=== PATIENT | female | born 1980 | race Caucasian/White ===

== ENCOUNTER 2017-05-01 23:57 | Emergency (ER) | payer MEDICAID, OTHER ==
[~2017-05-01] VITALS: Ht 165.1 cm; Wt 81.0 kg
[~2017-05-01 23:57] MED LIST: QUET50TA5 PO; SERT50TA PO
[2017-05-02 01:15] LABS: HCG UR LOT HCG7030192
[2017-05-02] MEDS ORDERED: DIAZ2TAB PO (01:15)
[2017-05-02] MEDS ORDERED: LORazepam 1MG TABLET ONE (01:20)
[2017-05-02] MEDS ORDERED: LORazepam 1MG TABLET PO ONE (01:30)
[2017-05-02 01:34] LABS: HCG UR OBC PASS
[2017-05-02] MEDS ORDERED: ONDANSETRON ODT 4 MG ONE (02:20)
[2017-05-02] MEDS ORDERED: AZITHROMYCIN 250 MG TABLET ONE (02:20)
[2017-05-02] MEDS ORDERED: metroNIDAZOLE 500 MG TABLET ONE (02:20)
[2017-05-02] MEDS ORDERED: CEFTRIAXONE 250 MG ONE (02:20)
[2017-05-02] MEDS ORDERED: metroNIDAZOLE 500 MG TABLET PO ONE (02:30)
[2017-05-02] MEDS ORDERED: AZITHROMYCIN 500 MG TABLET PO ONE (02:30)
[2017-05-02] MEDS ORDERED: CEFTRIAXONE 250 MG IM ONE (02:30)
[2017-05-02] MEDS ORDERED: ONDANSETRON ODT 4 MG PO ONE (02:30)
[2017-05-02 03:39] VITALS: BP 114/87
== END 2017-05-02 03:40 | disposition home or self-care (01) ==
LOC: ED 05-02 02:35
DX: A59.9 Trichomoniasis, unspecified (principal); R30.0 Dysuria
CPT/HCPCS: 81001; 81025; 87086; 87147; 87210; 87491; 87591; 87808; 96372; 99284; J0696; Q0162

== ENCOUNTER 2017-07-02 21:38 | Observation (INO) | payer OTHER ==
[~2017-07-02] VITALS: Ht 165.1 cm; Wt 76.2 kg
[~2017-07-02 21:38] MED LIST changes: +DIAZ2TAB PO
[2017-07-02] MEDS ORDERED: ONDANSETRON ODT 4 MG PO ONE (22:30)
[2017-07-02 22:51] LABS: BASOPHILS # (AUTO) 0.04 x10^3/uL (0-0.1); BASOPHILS % (AUTO) 1 % (0-1); EOSINOPHILS # (AUTO) 0.04 x10^3/uL (0-0.4); EOSINOPHILS % (AUTO) 1 % (1-7); LYMPHOCYTES # (AUTO) 2.21 x10^3/uL (1-3.4); LYMPHOCYTES % (AUTO) 29 % (22-44); MD NO; MEAN CORPUSCULAR HEMOGLOBIN 31.2 pg (27.0-34.8); MEAN CORPUSCULAR HGB CONC 33.5 g/dL (32.4-35.8); MEAN CORPUSCULAR VOLUME 93.3 fL (80-100); MEAN PLATELET VOLUME 8.5 fL (7.4-10.4); MONOCYTES # (AUTO) 0.53 x10^3/uL (0.2-0.8); MONOCYTES % (AUTO) 7 % (2-9); NEUTROPHILS % (AUTO) 63 % (42-75); PLATELET COUNT 322 x10^3/uL (130-400); RED BLOOD COUNT 4.69 x10^6/uL (3.82-5.3); RED CELL DISTRIBUTION WIDTH 12.6 % (9.6-15.2)
[2017-07-02 22:54] LABS: ALANINE AMINOTRANSFERASE 17 U/L (12-78); ALBUMIN 3.5 g/dL (3.4-5.0); ANION GAP 7 mmol/L (5-15); CALCIUM 8.4 mg/dL (8.5-10.1); CHLORIDE 107 mmol/L (98-107); SALICYLATE LEVEL 5.5 mg/dL (2.8-20.0)
[2017-07-02 22:57] LABS: ALKALINE PHOSPHATASE 74 U/L (45-117); BILIRUBIN,TOTAL 0.6 mg/dL (0.2-1.0); CREATININE 0.76 mg/dL (0.55-1.02); TOTAL PROTEIN 6.5 g/dL (6.4-8.2)
[2017-07-02 22:58] LABS: ACETAMINOPHEN < 2 mcg/mL (10-30)
[2017-07-02] MEDS ORDERED: ONDANSETRON ODT 4 MG ONE (23:00)
[2017-07-03 04:53] LABS: MICROSCOPIC INDICATED
[2017-07-03 05:02] LABS: CULTURE INDICATED? YES
[2017-07-03 05:50] LABS: AMPHETAMINE SCREEN, URINE Negative (Negative); BARBITURATE SCREEN, URINE Negative (Negative); BENZODIAZEPINE SCREEN, URINE Negative (Negative); CANNABINOID SCREEN, URINE Positive (Negative); COCAINE SCREEN, URINE Negative (Negative); METHADONE SCREEN, URINE Negative (Negative)
[2017-07-03 05:59] LABS: OPIATE SCREEN, URINE Negative (Negative)
[2017-07-03 08:30] VITALS: BP 105/68
[2017-07-03] MEDS: NICOTINE 14MG/24 HR PATCH.TD24 TD SCH (08:38)
[2017-07-03] MEDS: ONDANSETRON ODT 4 MG PO PRN (08:38)
[2017-07-03] MEDS: QUETIAPINE 25MG TABLET PO SCH (08:38)
[2017-07-03 19:35] VITALS: BP 104/70
[2017-07-04 05:55] LABS: ANION GAP 3 mmol/L (5-15); BASOPHILS # (AUTO) 0.05 x10^3/uL (0-0.1); BASOPHILS % (AUTO) 1 % (0-1); CALCIUM 8.5 mg/dL (8.5-10.1); CHLORIDE 107 mmol/L (98-107); CREATININE 0.94 mg/dL (0.55-1.02); EOSINOPHILS # (AUTO) 0.06 x10^3/uL (0-0.4); EOSINOPHILS % (AUTO) 1 % (1-7); LYMPHOCYTES # (AUTO) 1.46 x10^3/uL (1-3.4); LYMPHOCYTES % (AUTO) 22 % (22-44); MD NO; MEAN CORPUSCULAR HGB CONC 34.3 g/dL (32.4-35.8); MEAN CORPUSCULAR VOLUME 93.1 fL (80-100); MEAN PLATELET VOLUME 8.5 fL (7.4-10.4); MONOCYTES # (AUTO) 0.58 x10^3/uL (0.2-0.8); MONOCYTES % (AUTO) 9 % (2-9); NEUTROPHILS # (AUTO) 4.63 x10^3/uL (1.8-6.8); NEUTROPHILS % (AUTO) 68 % (42-75); PLATELET COUNT 284 x10^3/uL (130-400); RED BLOOD COUNT 4.62 x10^6/uL (3.82-5.3); RED CELL DISTRIBUTION WIDTH 12.8 % (9.6-15.2)
[2017-07-04 06:04] LABS: FREE T4 (FREE THYROXINE) 1.03 ng/dL (0.76-1.46); THYROID STIMULATING HORMONE 0.388 mIU/L (0.358-3.740)
[2017-07-04] MEDS: NICOTINE 14MG/24 HR PATCH.TD24 TD SCH (07:45)
[2017-07-04] MEDS: QUETIAPINE 25MG TABLET PO SCH (07:46)
[2017-07-04 07:56] VITALS: BP 94/64
[2017-07-04] MEDS: ONDANSETRON ODT 4 MG PO PRN (19:41)
[2017-07-04 20:01] VITALS: BP 102/71
[2017-07-05] MEDS: NICOTINE 14MG/24 HR PATCH.TD24 TD SCH (07:59)
[2017-07-05] MEDS: ONDANSETRON ODT 4 MG PO PRN (08:13)
[2017-07-05] MEDS: QUETIAPINE 25MG TABLET PO SCH (08:16)
[2017-07-05 08:18] VITALS: BP 120/81
[2017-07-05] MEDS: metroNIDAZOLE 500 MG TABLET PO SCH ×2 (13:59→20:51)
[2017-07-05 19:35] VITALS: BP 90/63
[2017-07-05] MEDS: QUETIAPINE 100MG TABLET PO SCH (20:52)
[2017-07-05] MEDS: ACETAMINOPHEN 325 MG TABLET PO PRN (20:55)
[2017-07-06 08:20] VITALS: BP 114/72
[2017-07-06] MEDS: NICOTINE 14MG/24 HR PATCH.TD24 TD SCH (08:23)
[2017-07-06] MEDS: metroNIDAZOLE 500 MG TABLET PO SCH ×2 (08:23→20:52)
[2017-07-06] MEDS: ONDANSETRON ODT 4 MG PO PRN ×2 (13:43→20:52)
[2017-07-06] MEDS: ACETAMINOPHEN 325 MG TABLET PO PRN ×2 (13:43→22:25)
[2017-07-06 19:26] VITALS: BP 106/63
[2017-07-06] MEDS: QUETIAPINE 100MG TABLET PO SCH (20:52)
[2017-07-07 08:45] VITALS: BP_SYST 94; BP_SYST 96; BP_DIAS 66
[2017-07-07] MEDS: metroNIDAZOLE 500 MG TABLET PO SCH ×2 (08:56→20:45)
[2017-07-07] MEDS: NICOTINE 14MG/24 HR PATCH.TD24 TD SCH (08:58)
[2017-07-07] MEDS: ONDANSETRON ODT 4 MG PO PRN ×2 (09:01→20:46)
[2017-07-07] MEDS: hydrOXyzine 50MG TABLET PO PRN (14:06)
[2017-07-07] MEDS: QUETIAPINE 100MG TABLET PO SCH (20:46)
[2017-07-07 20:51] VITALS: BP 90/59
[2017-07-08] MEDS: hydrOXyzine 50MG TABLET PO PRN ×2 (08:15→17:35)
[2017-07-08] MEDS: NICOTINE 14MG/24 HR PATCH.TD24 TD SCH (08:15)
[2017-07-08] MEDS: metroNIDAZOLE 500 MG TABLET PO SCH ×2 (08:15→20:52)
[2017-07-08] MEDS: ONDANSETRON ODT 4 MG PO PRN ×2 (14:13→20:52)
[2017-07-08 19:39] VITALS: BP 102/61
[2017-07-08] MEDS: QUETIAPINE 100MG TABLET PO SCH (20:52)
[2017-07-09 09:40] VITALS: BP 100/68
[2017-07-09] MEDS: NICOTINE 14MG/24 HR PATCH.TD24 TD SCH (10:02)
[2017-07-09] MEDS: metroNIDAZOLE 500 MG TABLET PO SCH (10:02)
[2017-07-09] MEDS: hydrOXyzine 50MG TABLET PO PRN (10:06)
== END 2017-07-09 13:14 ==
LOC: ED 23:21 → EDIP 07-03 06:21 → 2N 07-03 08:25
PROVIDERS: ADMIT Hospitalist; ATTEND Family Medicine
DX: R45.851 Suicidal ideations (principal); R82.90 Unspecified abnormal findings in urine; R05 Cough; E87.6 Hypokalemia; F12.90 Cannabis use, unspecified, uncomplicated; F17.210 Nicotine dependence, cigarettes, uncomplicated; F41.9 Anxiety disorder, unspecified; B96.89 Other specified bacterial agents as the cause of diseases classified elsewhere; N76.0 Acute vaginitis; Z59.0 Homelessness
CPT/HCPCS: 36415; 71010; 80048; 80053; 80307; 80329; 81001; 83690; 84439; 84443; 84703; 85025; 87086; 99285; G0378; Q0162; G0479; G0480

== ENCOUNTER 2017-12-05 15:44 | Emergency (ER) | payer MEDICAID, OTHER ==
[~2017-12-05] VITALS: Ht 165.1 cm; Wt 91.8 kg
[2017-12-05 15:48] VITALS: BP 142/98
[2017-12-05] MEDS ORDERED: KETOROLAC 30 MG/1 ML ONE (16:59)
[2017-12-05] MEDS ORDERED: HYDROcodone/APAP 5/325 TABLET ONE (16:59)
[2017-12-05] MEDS ORDERED: DIAZEPAM 5 MG TABLET PO ONE (17:00)
[2017-12-05] MEDS ORDERED: KETOROLAC 30 MG/1 ML IM ONE (17:00)
[2017-12-05] MEDS ORDERED: DIAZEPAM 5 MG TABLET ONE (17:01)
== END 2017-12-05 17:24 | disposition home or self-care (01) ==
LOC: ED 17:22
DX: S16.1XXA Strain of muscle, fascia and tendon at neck level, initial encounter (principal); F17.200 Nicotine dependence, unspecified, uncomplicated; M62.830 Muscle spasm of back; M25.512 Pain in left shoulder; M25.511 Pain in right shoulder; V43.52XA Car driver injured in collision with other type car in traffic accident, initial encounter; Y93.89 Activity, other specified; Y92.410 Unspecified street and highway as the place of occurrence of the external cause; Y99.8 Other external cause status
CPT/HCPCS: 72050; 96372; 99284; J1885

== ENCOUNTER 2018-03-06 16:28 | Inpatient (IN) | payer MEDICAID ==
[~2018-03-06] VITALS: Ht 165.1 cm; Wt 93.6 kg
[2018-03-06] MEDS ORDERED: LORazepam 2 MG/ML, 1ML IVPush ONE (17:00)
[2018-03-06] MEDS ORDERED: SODIUM CHLORIDE 0.9% 1,000ML IVBOLUS ONE (17:00)
[2018-03-06] MEDS ORDERED: SODIUM CHLORIDE FLUSH 10ML SYR IVF ONE (17:00)
[2018-03-06] MEDS ORDERED: LORazepam 2 MG/ML, 1ML ONE (17:16)
[2018-03-06 17:17] LABS: BASOPHILS # (AUTO) 0.02 x10^3/uL (0-0.1); BASOPHILS % (AUTO) 0 % (0-1); EOSINOPHILS % (AUTO) 0 % (1-7); LYMPHOCYTES # (AUTO) 0.77 x10^3/uL (1-3.4); LYMPHOCYTES % (AUTO) 11 % (22-44); MD NO; MEAN CORPUSCULAR HEMOGLOBIN 31.9 pg (27.0-34.8); MEAN CORPUSCULAR HGB CONC 34.5 g/dL (32.4-35.8); MEAN CORPUSCULAR VOLUME 92.5 fL (80-100); MEAN PLATELET VOLUME 8.2 fL (7.4-10.4); MONOCYTES # (AUTO) 0.36 x10^3/uL (0.2-0.8); MONOCYTES % (AUTO) 5 % (2-9); NEUTROPHILS # (AUTO) 5.96 x10^3/uL (1.8-6.8); NEUTROPHILS % (AUTO) 84 % (42-75); PLATELET COUNT 292 x10^3/uL (130-400); RED BLOOD COUNT 4.83 x10^6/uL (3.82-5.3); RED CELL DISTRIBUTION WIDTH 12.9 % (9.6-15.2)
[2018-03-06 17:29] LABS: ALANINE AMINOTRANSFERASE 15 U/L (12-78); ALBUMIN 4.2 g/dL (3.4-5.0); ANION GAP 10 mmol/L (5-15); CALCIUM 8.9 mg/dL (8.5-10.1); CHLORIDE 108 mmol/L (98-107); CREATININE 1.13 mg/dL (0.55-1.02)
[2018-03-06] MEDS ORDERED: CHARCOAL/SORBITOL 50 GM/240 ML ONE (17:33)
[2018-03-06 17:34] LABS: ALKALINE PHOSPHATASE 101 U/L (45-117); BILIRUBIN,TOTAL 0.5 mg/dL (0.2-1.0); TOTAL PROTEIN 7.9 g/dL (6.4-8.2)
[2018-03-06] MEDS ORDERED: METOPROLOL 1 MG/ML, 5ML ONE (17:37)
[2018-03-06] MEDS ORDERED: MAGNESIUM SULFATE 1 GM in SODIUM CHLORIDE 0.9% 50 ML IV ONE (18:00)
[2018-03-06] MEDS ORDERED: METOPROLOL 1 MG/ML, 5ML IVPush ONE (18:30)
[2018-03-06] MEDS ORDERED: SUCCINYLCHOLINE 20 MG/ML, 10ML IVPush ONE (19:00)
[2018-03-06] MEDS ORDERED: PROPOFOL 100 ML IV ONE ×3 (19:00→20:40)
[2018-03-06] MEDS ORDERED: ETOMIDATE 20 MG/10 ML IVPush ONE (19:00)
[2018-03-06] MEDS ORDERED: PROPOFOL 10 MG/ML, 20ML IVPush ONE ×2 (19:00→19:30)
[2018-03-06 19:02] LABS: SALICYLATE LEVEL 5.7 mg/dL (2.8-20.0)
[2018-03-06 19:03] LABS: ACETAMINOPHEN < 2 mcg/mL (10-30)
[2018-03-06] MEDS ORDERED: PROPOFOL 10 MG/ML, 20ML ONE (20:00)
[2018-03-06] MEDS ORDERED: CEFTRIAXONE 1,000 MG in SODIUM CHLORIDE 0.9% 50 ML IVPB ONE (20:00)
[2018-03-06] MEDS ORDERED: PROPOFOL 10 MG/ML, 100ML IV ONE (20:00)
[2018-03-06] MEDS ORDERED: SUCCINYLCHOLINE 20 MG/ML, 10ML ONE (20:00)
[2018-03-06] MEDS ORDERED: ETOMIDATE 20 MG/10 ML ONE (20:00)
[2018-03-06] MEDS ORDERED: ROCURONIUM 10 MG/ML,10ML ONE (20:00)
[2018-03-06] MEDS ORDERED: CEFTRIAXONE PMX 1GM/50ML 50 ML ONE (20:06)
[2018-03-06 20:22] LABS: AMPHETAMINE SCREEN, URINE Negative (Negative); BARBITURATE SCREEN, URINE Negative (Negative); BENZODIAZEPINE SCREEN, URINE Positive (Negative); CANNABINOID SCREEN, URINE Positive (Negative); COCAINE SCREEN, URINE Negative (Negative); METHADONE SCREEN, URINE Negative (Negative); OPIATE SCREEN, URINE Negative (Negative)
[2018-03-06] MEDS ORDERED: LABETALOL 5MG/ML, 20ML IVPush PRN (20:30)
[2018-03-06] MEDS ORDERED: BISACODYL 10 MG SUPP PR PRN (20:30)
[2018-03-06] MEDS ORDERED: morphine SULFATE 10 MG/ML, 1ML IVPush PRN (20:30)
[2018-03-06] MEDS ORDERED: ONDANSETRON 2MG/ML, 2ML IVPush PRN (20:30)
[2018-03-06] MEDS ORDERED: PROMETHAZINE 25 MG/ML, 1ML IM PRN (20:30)
[2018-03-06] MEDS ORDERED: POLYETHYLENE GLYCOL 17 GM PACKET PO PRN (20:30)
[2018-03-06] MEDS ORDERED: DOCUSATE 100 MG CAPSULE PO PRN (20:30)
[2018-03-06] MEDS ORDERED: ONDANSETRON ODT 4 MG PO PRN (20:30)
[2018-03-06] MEDS ORDERED: hydrALAzine 20 MG/ML, 1ML IVPush PRN (20:30)
[2018-03-06] MEDS ORDERED: HEPARIN 5,000 UNITS/ML, 1ML ONE (20:46)
[2018-03-06] MEDS ORDERED: FAMOTIDINE 20 MG/2 ML ONE (20:46)
[2018-03-06] MEDS: HEPARIN 5,000 UNITS/ML, 1ML SQ SCH (20:47)
[2018-03-06] MEDS: FAMOTIDINE 20 MG/2 ML IVPush SCH (20:47)
[2018-03-06 21:20] LABS: FREE T4 (FREE THYROXINE) 1.66 ng/dL (0.76-1.46); THYROID STIMULATING HORMONE 1.24 mIU/L (0.358-3.740)
[2018-03-06] MEDS: D5%-0.9% NACL+KCL 20MEQ 1,000 ML IV SCH (23:20)
[2018-03-07] MEDS: PROPOFOL 100 ML IV PRN ×2 (00:54→03:21)
[2018-03-07 01:33] LABS: CULTURE INDICATED? YES; MICROSCOPIC INDICATED
[2018-03-07] MEDS ORDERED: PHARMACY MAY ADJ FOR RENAL FX MC SCH (03:00)
[2018-03-07] MEDS ORDERED: LIDOCAINE-MPF 1%, 2ML ENDO PRN (03:00)
[2018-03-07 04:00] VITALS: BP 123/87
[2018-03-07] MEDS: HEPARIN 5,000 UNITS/ML, 1ML SQ SCH ×3 (04:13→20:28)
[2018-03-07 06:30] LABS: BASOPHILS # (AUTO) 0.05 x10^3/uL (0-0.1); BASOPHILS % (AUTO) 1 % (0-1); EOSINOPHILS # (AUTO) 0.04 x10^3/uL (0-0.4); EOSINOPHILS % (AUTO) 1 % (1-7); LYMPHOCYTES # (AUTO) 0.99 x10^3/uL (1-3.4); LYMPHOCYTES % (AUTO) 14 % (22-44); MD NO; MEAN CORPUSCULAR HEMOGLOBIN 31.1 pg (27.0-34.8); MEAN CORPUSCULAR HGB CONC 33.9 g/dL (32.4-35.8); MEAN CORPUSCULAR VOLUME 91.7 fL (80-100); MEAN PLATELET VOLUME 8.2 fL (7.4-10.4); MONOCYTES # (AUTO) 0.17 x10^3/uL (0.2-0.8); MONOCYTES % (AUTO) 2 % (2-9); NEUTROPHILS # (AUTO) 5.96 x10^3/uL (1.8-6.8); NEUTROPHILS % (AUTO) 83 % (42-75); PLATELET COUNT 234 x10^3/uL (130-400); RED BLOOD COUNT 4.17 x10^6/uL (3.82-5.3); RED CELL DISTRIBUTION WIDTH 12.7 % (9.6-15.2)
[2018-03-07 06:37] LABS: ALANINE AMINOTRANSFERASE 16 U/L (12-78); ALBUMIN 3.3 g/dL (3.4-5.0); ANION GAP 7 mmol/L (5-15); CALCIUM 7.5 mg/dL (8.5-10.1); CHLORIDE 115 mmol/L (98-107); CREATININE 0.93 mg/dL (0.55-1.02)
[2018-03-07 06:40] LABS: ALKALINE PHOSPHATASE 89 U/L (45-117); BILIRUBIN,TOTAL 0.2 mg/dL (0.2-1.0); CHOL/HDL RATIO 3.7; CHOLESTEROL, TOTAL 139 mg/dL (140-239); HDL CHOL % 27 % (28-40); HDL CHOLESTEROL (DIRECT) 38 mg/dL (40-60); LDL CHOLESTEROL,CALCULATED 70 mg/dL (54-169); LDL/HDL RATIO 1.8 (0.5-3.0); TOTAL PROTEIN 6.3 g/dL (6.4-8.2); TRIGLYCERIDES 156 mg/dL (50-200); VLDL CHOLESTEROL 31 mg/dL (0-25)
[2018-03-07] MEDS: D5%-0.9% NACL+KCL 20MEQ 1,000 ML IV SCH (08:30)
[2018-03-07] MEDS: FAMOTIDINE 20 MG/2 ML IVPush SCH ×2 (08:42→20:28)
[2018-03-07] MEDS: THIAMINE 200 MG, FOLIC ACID 1 MG, MVI ADULT 10 ML in SODIUM CHLORIDE 0.9% 1,000 ML IV SCH (09:56)
[2018-03-07] MEDS: OXYcodone IR 5MG TABLET PO PRN ×3 (12:47→19:48)
[2018-03-07] MEDS ORDERED: SODIUM CHLORIDE 0.9%, 500ML IVBOLUS ONE (18:00)
[2018-03-07] MEDS ORDERED: SODIUM CHLORIDE 0.9% 500 ML IV SCH (22:30)
[2018-03-07] MEDS ORDERED: SODIUM CHLORIDE 0.9% 500 ML IV ONE (23:00)
[2018-03-08 01:21] VITALS: BP 110/75
[2018-03-08] MEDS: HEPARIN 5,000 UNITS/ML, 1ML SQ SCH ×3 (04:18→18:16)
[2018-03-08 05:51] LABS: BASOPHILS # (AUTO) 0.02 x10^3/uL (0-0.1); BASOPHILS % (AUTO) 0 % (0-1); EOSINOPHILS # (AUTO) 0.01 x10^3/uL (0-0.4); EOSINOPHILS % (AUTO) 0 % (1-7); LYMPHOCYTES % (AUTO) 19 % (22-44); MD NO; MEAN CORPUSCULAR HEMOGLOBIN 31.5 pg (27.0-34.8); MEAN CORPUSCULAR HGB CONC 34.1 g/dL (32.4-35.8); MEAN CORPUSCULAR VOLUME 92.2 fL (80-100); MEAN PLATELET VOLUME 8.7 fL (7.4-10.4); MONOCYTES # (AUTO) 0.44 x10^3/uL (0.2-0.8); MONOCYTES % (AUTO) 8 % (2-9); NEUTROPHILS # (AUTO) 4.27 x10^3/uL (1.8-6.8); NEUTROPHILS % (AUTO) 73 % (42-75); PLATELET COUNT 210 x10^3/uL (130-400); RED CELL DISTRIBUTION WIDTH 13.3 % (9.6-15.2)
[2018-03-08 05:52] LABS: ANION GAP 7 mmol/L (5-15); CALCIUM 7.4 mg/dL (8.5-10.1); CHLORIDE 112 mmol/L (98-107); CREATININE 1.02 mg/dL (0.55-1.02)
[2018-03-08 08:36] VITALS: BP 101/69
[2018-03-08] MEDS: FAMOTIDINE 20 MG/2 ML IVPush SCH ×2 (08:59→21:01)
[2018-03-08] MEDS: THIAMINE 200 MG, FOLIC ACID 1 MG, MVI ADULT 10 ML in SODIUM CHLORIDE 0.9% 1,000 ML IV SCH (10:35)
[2018-03-08 12:27] VITALS: BP 104/72
[2018-03-08] MEDS ORDERED: KETOROLAC 30 MG/1 ML IVPush PRN (12:30)
[2018-03-08 18:51] VITALS: BP 111/77
[2018-03-09 00:40] VITALS: BP 114/76
[2018-03-09] MEDS: HEPARIN 5,000 UNITS/ML, 1ML SQ SCH (02:06)
[2018-03-09 04:45] LABS: BASOPHILS # (AUTO) 0.03 x10^3/uL (0-0.1); BASOPHILS % (AUTO) 1 % (0-1); EOSINOPHILS # (AUTO) 0.07 x10^3/uL (0-0.4); EOSINOPHILS % (AUTO) 1 % (1-7); LYMPHOCYTES # (AUTO) 1.81 x10^3/uL (1-3.4); LYMPHOCYTES % (AUTO) 36 % (22-44); MD NO; MEAN CORPUSCULAR HEMOGLOBIN 31.6 pg (27.0-34.8); MEAN CORPUSCULAR HGB CONC 33.9 g/dL (32.4-35.8); MEAN CORPUSCULAR VOLUME 93.1 fL (80-100); MEAN PLATELET VOLUME 8.2 fL (7.4-10.4); MONOCYTES # (AUTO) 0.57 x10^3/uL (0.2-0.8); MONOCYTES % (AUTO) 11 % (2-9); NEUTROPHILS # (AUTO) 2.61 x10^3/uL (1.8-6.8); NEUTROPHILS % (AUTO) 51 % (42-75); PLATELET COUNT 236 x10^3/uL (130-400); RED BLOOD COUNT 4.08 x10^6/uL (3.82-5.3); RED CELL DISTRIBUTION WIDTH 13.1 % (9.6-15.2)
[2018-03-09 04:56] LABS: ANION GAP 6 mmol/L (5-15); CALCIUM 7.9 mg/dL (8.5-10.1); CHLORIDE 111 mmol/L (98-107)
[2018-03-09 10:08] VITALS: BP 102/64
[2018-03-09 14:27] VITALS: BP 114/80
[2018-03-09 14:59] VITALS: BP 128/45
[2018-03-09] MEDS: LORazepam 1MG TABLET PO PRN ×2 (14:59→20:40)
[2018-03-09 19:11] VITALS: BP 121/83
[2018-03-09] MEDS: CALCIUM CARBONATE 500 MG TAB.CHEW PO PRN (23:00)
[2018-03-10 03:34] VITALS: BP 109/69
[2018-03-10 05:42] LABS: BASOPHILS # (AUTO) 0.03 x10^3/uL (0-0.1); BASOPHILS % (AUTO) 1 % (0-1); EOSINOPHILS # (AUTO) 0.06 x10^3/uL (0-0.4); EOSINOPHILS % (AUTO) 1 % (1-7); LYMPHOCYTES # (AUTO) 2.02 x10^3/uL (1-3.4); LYMPHOCYTES % (AUTO) 37 % (22-44); MD NO; MEAN CORPUSCULAR HEMOGLOBIN 31.3 pg (27.0-34.8); MEAN CORPUSCULAR HGB CONC 34.3 g/dL (32.4-35.8); MEAN CORPUSCULAR VOLUME 91.1 fL (80-100); MEAN PLATELET VOLUME 8.2 fL (7.4-10.4); MONOCYTES # (AUTO) 0.53 x10^3/uL (0.2-0.8); MONOCYTES % (AUTO) 10 % (2-9); NEUTROPHILS # (AUTO) 2.76 x10^3/uL (1.8-6.8); NEUTROPHILS % (AUTO) 51 % (42-75); PLATELET COUNT 264 x10^3/uL (130-400); RED CELL DISTRIBUTION WIDTH 12.6 % (9.6-15.2)
[2018-03-10 05:47] LABS: ANION GAP 8 mmol/L (5-15); CALCIUM 8.5 mg/dL (8.5-10.1); CHLORIDE 108 mmol/L (98-107)
[2018-03-10 05:49] LABS: TRIGLYCERIDES 178 mg/dL (50-200)
[2018-03-10] MEDS ORDERED: POTASSIUM CHLORIDE 20 MEQ TAB.ER.PRT PO ONE (07:00)
[2018-03-10 08:40] VITALS: BP 117/77
[2018-03-10] MEDS: LORazepam 1MG TABLET PO PRN ×2 (10:54→19:31)
[2018-03-10 13:50] VITALS: BP 122/88
[2018-03-10] MEDS: CALCIUM CARBONATE 500 MG TAB.CHEW PO PRN (17:22)
[2018-03-10 19:05] VITALS: BP 124/88
[2018-03-10] MEDS: FAMOTIDINE 20 MG TABLET PO SCH (19:54)
[2018-03-10] MEDS: DIPHENHYDRAMINE 25 MG CAPSULE PO PRN (22:29)
[2018-03-11 00:34] VITALS: BP 105/72
[2018-03-11] MEDS: LORazepam 1MG TABLET PO PRN ×3 (04:47→20:23)
[2018-03-11 04:58] LABS: BASOPHILS # (AUTO) 0.04 x10^3/uL (0-0.1); BASOPHILS % (AUTO) 1 % (0-1); EOSINOPHILS # (AUTO) 0.04 x10^3/uL (0-0.4); EOSINOPHILS % (AUTO) 1 % (1-7); LYMPHOCYTES # (AUTO) 2.11 x10^3/uL (1-3.4); LYMPHOCYTES % (AUTO) 32 % (22-44); MD NO; MEAN CORPUSCULAR HEMOGLOBIN 31.4 pg (27.0-34.8); MEAN CORPUSCULAR HGB CONC 34.3 g/dL (32.4-35.8); MEAN CORPUSCULAR VOLUME 91.6 fL (80-100); MEAN PLATELET VOLUME 7.9 fL (7.4-10.4); MONOCYTES # (AUTO) 0.66 x10^3/uL (0.2-0.8); MONOCYTES % (AUTO) 10 % (2-9); NEUTROPHILS # (AUTO) 3.82 x10^3/uL (1.8-6.8); NEUTROPHILS % (AUTO) 57 % (42-75); PLATELET COUNT 316 x10^3/uL (130-400); RED BLOOD COUNT 4.53 x10^6/uL (3.82-5.3); RED CELL DISTRIBUTION WIDTH 12.5 % (9.6-15.2)
[2018-03-11 05:06] LABS: ANION GAP 6 mmol/L (5-15); CALCIUM 8.7 mg/dL (8.5-10.1); CHLORIDE 108 mmol/L (98-107); CREATININE 0.92 mg/dL (0.55-1.02)
[2018-03-11 08:00] VITALS: BP 96/62
[2018-03-11] MEDS: FAMOTIDINE 20 MG TABLET PO SCH ×2 (11:27→20:23)
[2018-03-11 14:15] VITALS: BP 122/84
[2018-03-11 19:10] VITALS: BP 106/73
[2018-03-11] MEDS: CALCIUM CARBONATE 500 MG TAB.CHEW PO PRN (20:23)
[2018-03-11] MEDS: DIPHENHYDRAMINE 25 MG CAPSULE PO PRN (20:23)
[2018-03-11] MEDS: ACETAMINOPHEN 325 MG TABLET PO PRN (20:23)
[2018-03-12 02:34] VITALS: BP 110/73
[2018-03-12 05:47] LABS: BASOPHILS # (AUTO) 0.03 x10^3/uL (0-0.1); BASOPHILS % (AUTO) 1 % (0-1); EOSINOPHILS # (AUTO) 0.09 x10^3/uL (0-0.4); EOSINOPHILS % (AUTO) 2 % (1-7); LYMPHOCYTES # (AUTO) 2.34 x10^3/uL (1-3.4); LYMPHOCYTES % (AUTO) 37 % (22-44); MD NO; MEAN CORPUSCULAR HEMOGLOBIN 31.2 pg (27.0-34.8); MEAN CORPUSCULAR HGB CONC 34.3 g/dL (32.4-35.8); MEAN CORPUSCULAR VOLUME 90.8 fL (80-100); MEAN PLATELET VOLUME 7.8 fL (7.4-10.4); MONOCYTES # (AUTO) 0.51 x10^3/uL (0.2-0.8); MONOCYTES % (AUTO) 8 % (2-9); NEUTROPHILS # (AUTO) 3.29 x10^3/uL (1.8-6.8); NEUTROPHILS % (AUTO) 53 % (42-75); PLATELET COUNT 333 x10^3/uL (130-400); RED BLOOD COUNT 4.58 x10^6/uL (3.82-5.3); RED CELL DISTRIBUTION WIDTH 12.5 % (9.6-15.2)
[2018-03-12 06:10] LABS: ANION GAP 7 mmol/L (5-15); CALCIUM 8.8 mg/dL (8.5-10.1); CHLORIDE 105 mmol/L (98-107); CREATININE 1.12 mg/dL (0.55-1.02)
[2018-03-12 07:54] VITALS: BP 116/78
[2018-03-12] MEDS: FAMOTIDINE 20 MG TABLET PO SCH ×2 (09:24→21:21)
[2018-03-12] MEDS: LORazepam 1MG TABLET PO PRN ×3 (11:31→20:05)
[2018-03-12 13:00] VITALS: BP 119/88
[2018-03-12 18:34] VITALS: BP 127/83
[2018-03-12] MEDS: PALIPERIDONE 3 MG TAB.ER.24 PO SCH (19:35)
[2018-03-13 02:44] VITALS: BP 107/76
[2018-03-13 06:08] LABS: BASOPHILS # (AUTO) 0.04 x10^3/uL (0-0.1); BASOPHILS % (AUTO) 1 % (0-1); EOSINOPHILS # (AUTO) 0.04 x10^3/uL (0-0.4); EOSINOPHILS % (AUTO) 1 % (1-7); LYMPHOCYTES # (AUTO) 2.43 x10^3/uL (1-3.4); LYMPHOCYTES % (AUTO) 34 % (22-44); MD NO; MEAN CORPUSCULAR HEMOGLOBIN 31.6 pg (27.0-34.8); MEAN CORPUSCULAR HGB CONC 34.5 g/dL (32.4-35.8); MEAN CORPUSCULAR VOLUME 91.7 fL (80-100); MEAN PLATELET VOLUME 7.9 fL (7.4-10.4); MONOCYTES % (AUTO) 8 % (2-9); NEUTROPHILS # (AUTO) 3.97 x10^3/uL (1.8-6.8); NEUTROPHILS % (AUTO) 56 % (42-75); PLATELET COUNT 345 x10^3/uL (130-400); RED BLOOD COUNT 4.77 x10^6/uL (3.82-5.3); RED CELL DISTRIBUTION WIDTH 12.7 % (9.6-15.2)
[2018-03-13 06:13] LABS: ANION GAP 8 mmol/L (5-15); CHLORIDE 105 mmol/L (98-107)
[2018-03-13 06:19] LABS: CALCIUM 8.9 mg/dL (8.5-10.1); CREATININE 0.96 mg/dL (0.55-1.02); TRIGLYCERIDES 99 mg/dL (50-200)
[2018-03-13 08:05] VITALS: BP 106/75
[2018-03-13] MEDS: FAMOTIDINE 20 MG TABLET PO SCH ×2 (10:06→20:13)
[2018-03-13] MEDS: PALIPERIDONE 3 MG TAB.ER.24 PO SCH (10:06)
[2018-03-13] MEDS: LORazepam 1MG TABLET PO PRN ×2 (14:36→20:13)
[2018-03-13 15:53] VITALS: BP 103/70
[2018-03-13 18:57] VITALS: BP 104/65
[2018-03-14 01:53] VITALS: BP 109/72
[2018-03-14 07:56] VITALS: BP 93/63
[2018-03-14] MEDS: FAMOTIDINE 20 MG TABLET PO SCH ×2 (09:47→20:03)
[2018-03-14] MEDS: PALIPERIDONE 3 MG TAB.ER.24 PO SCH (09:47)
[2018-03-14] MEDS: LORazepam 1MG TABLET PO PRN ×3 (10:22→20:03)
[2018-03-14 11:14] LABS: MICROSCOPIC INDICATED
[2018-03-14 11:29] LABS: CULTURE INDICATED? NO
[2018-03-14 13:00] VITALS: BP 108/76
[2018-03-14 20:23] VITALS: BP 118/80
[2018-03-15] MEDS: LORazepam 1MG TABLET PO PRN ×4 (03:20→22:00)
[2018-03-15 03:23] VITALS: BP 114/76
[2018-03-15 08:24] VITALS: BP 95/65
[2018-03-15] MEDS: FAMOTIDINE 20 MG TABLET PO SCH ×2 (11:03→21:07)
[2018-03-15 13:01] VITALS: BP 119/81
[2018-03-15 13:42] LABS: ALANINE AMINOTRANSFERASE 27 U/L (12-78); ALBUMIN 3.6 g/dL (3.4-5.0); ANION GAP 4 mmol/L (5-15); CALCIUM 8.5 mg/dL (8.5-10.1); CHLORIDE 107 mmol/L (98-107); CREATININE 0.99 mg/dL (0.55-1.02)
[2018-03-15 13:44] LABS: ALKALINE PHOSPHATASE 91 U/L (45-117); BILIRUBIN,TOTAL 0.6 mg/dL (0.2-1.0)
[2018-03-15 19:24] VITALS: BP 116/76
[2018-03-16 07:43] VITALS: BP 102/66
[2018-03-16] MEDS: FAMOTIDINE 20 MG TABLET PO SCH ×2 (08:45→20:32)
[2018-03-16] MEDS: LORazepam 1MG TABLET PO PRN ×3 (10:47→21:57)
[2018-03-16] MEDS: CALCIUM CARBONATE 500 MG TAB.CHEW PO PRN (15:38)
[2018-03-16 19:31] VITALS: BP 111/75
[2018-03-16] MEDS: ZOLPIDEM 5MG TABLET PO PRN (20:32)
[2018-03-17 08:15] VITALS: BP 104/70
[2018-03-17] MEDS: FAMOTIDINE 20 MG TABLET PO SCH ×2 (09:17→20:40)
[2018-03-17] MEDS: PALIPERIDONE 3 MG TAB.ER.24 PO SCH (09:17)
[2018-03-17] MEDS: LORazepam 1MG TABLET PO PRN ×3 (11:47→21:55)
[2018-03-17 19:53] VITALS: BP_SYST 91; BP_SYST 97; BP_DIAS 63
[2018-03-17] MEDS: ZOLPIDEM 5MG TABLET PO PRN (20:40)
[2018-03-18] MEDS: LORazepam 1MG TABLET PO PRN ×3 (04:29→22:23)
[2018-03-18 07:53] VITALS: BP 107/74
[2018-03-18] MEDS: PALIPERIDONE 3 MG TAB.ER.24 PO SCH (09:31)
[2018-03-18] MEDS: FAMOTIDINE 20 MG TABLET PO SCH ×2 (09:32→20:20)
[2018-03-18] MEDS ORDERED: TRAZODONE 50MG TABLET PO PRN (15:00)
[2018-03-18] MEDS ORDERED: PALIPERIDONE PALMITATE 234 MG/1.5 ML IM ONE (15:00)
[2018-03-18 19:47] VITALS: BP 95/60
[2018-03-18] MEDS: TRAZODONE 50MG TABLET PO SCH ×2 (20:20→20:22)
[2018-03-19] MEDS: FAMOTIDINE 20 MG TABLET PO SCH ×2 (08:08→20:47)
[2018-03-19 08:13] VITALS: BP 115/73
[2018-03-19 19:37] VITALS: BP 95/64
[2018-03-19] MEDS: QUETIAPINE 100MG TABLET PO PRN ×2 (20:47→21:20)
[2018-03-20 06:47] LABS: ALBUMIN 3.4 g/dL (3.4-5.0); ANION GAP 5 mmol/L (5-15); CALCIUM 8.5 mg/dL (8.5-10.1); CHLORIDE 110 mmol/L (98-107)
[2018-03-20 06:50] LABS: ALANINE AMINOTRANSFERASE 24 U/L (12-78); ALKALINE PHOSPHATASE 84 U/L (45-117); BILIRUBIN,TOTAL 0.6 mg/dL (0.2-1.0); CREATININE 0.92 mg/dL (0.55-1.02); TOTAL PROTEIN 6.9 g/dL (6.4-8.2)
[2018-03-20] MEDS: FAMOTIDINE 20 MG TABLET PO SCH ×2 (07:42→20:18)
[2018-03-20] MEDS: OMEPRAZOLE 10 MG CAPSULE.DR PO SCH (07:42)
[2018-03-20 07:50] VITALS: BP 106/72
[2018-03-20 19:53] VITALS: BP 103/67
[2018-03-20] MEDS: QUETIAPINE 100MG TABLET PO PRN ×2 (20:18→20:48)
[2018-03-21] MEDS: OMEPRAZOLE 10 MG CAPSULE.DR PO SCH (07:26)
[2018-03-21 07:36] VITALS: BP 102/74
[2018-03-21] MEDS: FAMOTIDINE 20 MG TABLET PO SCH ×2 (08:03→20:05)
[2018-03-21 19:07] VITALS: BP 101/65
[2018-03-21] MEDS ORDERED: QUETIAPINE 200 MG TABLET PO SCH (21:00)
[2018-03-22] MEDS: OMEPRAZOLE 10 MG CAPSULE.DR PO SCH (07:51)
[2018-03-22 08:23] VITALS: BP 87/52
[2018-03-22] MEDS: FAMOTIDINE 20 MG TABLET PO SCH (08:59)
[2018-03-22] MEDS: ACETAMINOPHEN 325 MG TABLET PO PRN (11:29)
== END 2018-03-22 14:09 | DRG 917 ==
LOC: ED 19:07 → EDIP 20:06 → ICU 21:12 → 5SO 03-07 21:15 → 3NE 03-09 14:56 → 2N 03-15 12:51
PROVIDERS: ADMIT Internal Medicine; ATTEND Internal Medicine
PROC: 5A1935Z Respiratory Ventilation, Less than 24 Consecutive Hours (ICD-10-PCS; principal; 2018-03-06)
PROC: 0BH17EZ Insertion of Endotracheal Airway into Trachea, Via Natural or Artificial Opening (ICD-10-PCS; 2018-03-06)
DX: T43.592A Poisoning by other antipsychotics and neuroleptics, intentional self-harm, initial encounter (principal); N17.0 Acute kidney failure with tubular necrosis; J96.00 Acute respiratory failure, unspecified whether with hypoxia or hypercapnia; E87.2 Acidosis; Z99.11 Dependence on respirator [ventilator] status; F12.90 Cannabis use, unspecified, uncomplicated; F17.210 Nicotine dependence, cigarettes, uncomplicated; F10.10 Alcohol abuse, uncomplicated; F22 Delusional disorders; F32.9 Major depressive disorder, single episode, unspecified; F41.9 Anxiety disorder, unspecified; G47.00 Insomnia, unspecified; R00.0 Tachycardia, unspecified; F15.10 Other stimulant abuse, uncomplicated; Z62.810 Personal history of physical and sexual abuse in childhood; I45.81 Long QT syndrome; Y92.89 Other specified places as the place of occurrence of the external cause; Z59.0 Homelessness; Z98.51 Tubal ligation status
CPT/HCPCS: 31500; 36415; 36600; 84145; 87806; 99291; S0028; 70450; 71045; 80048; 80053; 80061; 80307; 80329; 81001; 82803; 83036; 83605; 83735; 84439; 84443; 84478; 84703; 85025; 86706; 86803; 87040; 87070; 87081; 87086; 87205; 87340; 93005; 94002; 94003; 96361; 96365; 96375; G0378; J0696; J1644; J2704; J3411; G0475; G0480; J0330; J2060; J2270; J2426; J3480; J7030; J7040; Q0163

== ENCOUNTER 2020-04-17 19:01 | Emergency (ER) | payer OTHER ==
[~2020-04-17] VITALS: Ht 162.6 cm; Wt 108.7 kg
[2020-04-17 20:39] LABS: MICROSCOPIC INDICATED
[2020-04-17 20:42] LABS: HCG UR SG 1.029 (1.003-1.030)
--- NOTE | 2020-04-17 20:53 | NUR ---
PELVIC COMPLETED BY PROVIDER, TOLERATED WELL. SPECIMENS WALKED TO LAB.
[2020-04-17 21:07] LABS: WET PREP WBCS MODERATE (FEW)
[2020-04-17 21:12] LABS: CLUE CELLS NONE SEEN (NONE SEEN)
[2020-04-17] MEDS ORDERED: NYSTATIN CRM 15GM TP ONE (21:30)
--- NOTE | 2020-04-17 21:47 | NUR ---
PATIENT DID NOT TOLERATE IN AND OUT CATH WELL. SPECIMEN SUCCESSFULLY COLLECTED AND WALKED DOWN TO LAB.
[2020-04-17 22:07] LABS: MICROSCOPIC INDICATED
--- NOTE | 2020-04-17 22:08 | NUR ---
REPORT RC'VD FROM [facility].
--- NOTE | 2020-04-17 22:09 | NUR ---
REPORT GIVEN TO LEVI CAMARGO
[2020-04-17] MEDS ORDERED: ONDANSETRON ODT 4 MG ONE (22:46)
[2020-04-17] MEDS ORDERED: metroNIDAZOLE 500 MG TABLET ONE (22:46)
[2020-04-17] MEDS ORDERED: CEFTRIAXONE 250 MG ONE (22:46)
[2020-04-17] MEDS ORDERED: LIDOCAINE-MPF 1%, 5ML ONE (22:47)
[2020-04-17] MEDS ORDERED: ONDANSETRON ODT 4 MG PO ONE (23:00)
[2020-04-17] MEDS ORDERED: CEFTRIAXONE 250 MG IM ONE (23:00)
[2020-04-17] MEDS ORDERED: AZITHROMYCIN 500 MG TABLET PO ONE (23:00)
[2020-04-17] MEDS ORDERED: metroNIDAZOLE 500 MG TABLET PO ONE (23:00)
--- NOTE | 2020-04-17 23:05 | NUR ---
PT MEDICATED PER ORDERS. ER PA WAS IN FOR RECHECK.
[2020-04-17] MEDS ORDERED: AZITHROMYCIN 500 MG TABLET ONE (23:10)
[2020-04-17 23:14] VITALS: BP 149/114
== END 2020-04-17 23:20 | disposition home or self-care (01) ==
LOC: ED 20:55
DX: N89.8 Other specified noninflammatory disorders of vagina (principal); R30.0 Dysuria; A59.01 Trichomonal vulvovaginitis; N39.0 Urinary tract infection, site not specified; B37.2 Candidiasis of skin and nail; F12.10 Cannabis abuse, uncomplicated; R00.0 Tachycardia, unspecified; F17.210 Nicotine dependence, cigarettes, uncomplicated; Z90.89 Acquired absence of other organs
CPT/HCPCS: 81001; 81025; 87077; 87086; 87186; 87210; 87491; 87591; 87808; 96372; 99284; J0696; Q0162